=== PATIENT | female | born 1970 | race Caucasian/White ===

== ENCOUNTER 2017-12-21 12:36 | Emergency (ER) | payer MEDICAID ==
[2017-12-21] MEDS ORDERED: NS 1,000 ML IV ONE (12:57)
[2017-12-21] MEDS ORDERED: HYDROmorphONE/DILAUDID 2 MG/ML INJ IVP ONE (12:57)
[2017-12-21] MEDS ORDERED: ONDANSETRON 4 MG/2 ML VIAL IVP ONE ×2 (12:57→15:07)
--- NOTE | 2017-12-21 13:00 | EDPHY ---
H & P Stated Complaint: abd pain Time Seen by Provider: 12/21/17 12:52 HPI/ROS: CHIEF COMPLAINT: Abdominal pain, nausea and diarrhea HISTORY OF PRESENT ILLNESS: The patient is a 47-year-old morbidly obese female who presents complaining of abdominal pain. She has a history of diverticulitis and had a partial colectomy 3 years ago. She also has a history of cholecystectomy, appendectomy and hysterectomy with oophorectomy. No bleeding. She has some pain with trying to urinate but no burning or blood. She denies history of kidney stone. She thinks that this pain is similar to last time when she had diverticulitis. She has not had a fever. She has felt nauseous but has not vomited. She states that she is having watery nonbloody diarrhea. No recent travel. REVIEW OF SYSTEMS: Constitutional: denies: chills, fever, recent illness, recent injury EENTM: denies: blurred vision, double vision, nose congestion Respiratory: denies: cough, shortness of breath Cardiac: denies: chest pain, irregular heart rate, lightheadedness, palpitations Gastrointestinal/Abdominal: See HPI Genitourinary: denies: dysuria, frequency, hematuria, pain Musculoskeletal: denies: joint pain, muscle pain Skin: denies: lesions, rash, jaundice, bruising Neurological: denies: headache, numbness, paresthesia, tingling, dizziness, weakness Hematologic/Lymphatic: denies: blood clots, easy bleeding, easy bruising Immunologic/allergic: denies: HIV/AIDS, transplant EXAM: GENERAL: Well-appearing, well-nourished and in no acute distress. HEAD: Atraumatic, normocephalic. EYES: Pupils equal round and reactive to light, extraocular movements intact, sclera anicteric, conjunctiva are normal. ENT: TMs normal, nares patent, oropharynx clear without exudates. Moist mucous membranes. NECK: Normal range of motion, supple without lymphadenopathy or JVD. LUNGS: Breath sounds clear to auscultation bilaterally and equal. No wheezes rales or rhonchi. HEART: Regular rate and rhythm without murmurs, rubs or gallops. ABDOMEN: Morbidly obese, diffuse pain with even light touch of her skin or adipose tissue BACK: No CVA tenderness, no spinal tenderness, step-offs or deformities EXTREMITIES: Normal range of motion, no pitting or edema. No clubbing or cyanosis. NEUROLOGICAL: Cranial nerves II through XII grossly intact. Normal speech, normal gait. 5/5 strength, normal movement in all extremities, normal sensation PSYCH: Normal mood, normal affect. SKIN: Warm, dry, normal turgor, no visible rashes or lesions. Source: Patient Exam Limitations: No limitations - Personal History LMP (Females 10-55): Hysterectomy Current Tetanus/Diphtheria Vaccine: Yes - Medical/Surgical History Hx Asthma: No Hx Chronic Respiratory Disease: No Hx Diabetes: Yes Hx Cardiac Disease: No Hx Renal Disease: No Hx Cirrhosis: No Hx Alcoholism: No Other PMH: Diverticulosis, DM II, Cholecystectomy, appy, SHARRI,BSO, hernia repair - Family History Significant Family History: No pertinent family hx - Social History Smoking Status: Never smoked Alcohol Use: Sober Drug Use: None Constitutional: Initial Vital Signs Temperature (C) 36.5 C 12/21/17 12:38 Heart Rate 93 12/21/17 12:38 Respiratory Rate 16 12/21/17 12:38 Blood Pressure 136/97 H 12/21/17 12:38 O2 Sat (%) 95 12/21/17 12:38 O2 Delivery Mode Room Air O2 (L/minute) 2 Allergies/Adverse Reactions: Iodinated Contrast- Oral and IV Dye Allergy (Verified 12/21/17 12:46) Penicillins Allergy (Verified 12/21/17 12:44) topiramate [From Topamax] Allergy (Verified 12/21/17 12:44) Home Medications: Medication Instructions Recorded Effexor Xr 12/21/17 Lantus 12/21/17 Metformin HCl 12/21/17 Ondansetron Odt [Zofran Odt 4 mg 4 mg PO Q4 PRN #20 tab 12/21/17 (RX)] Pravastatin Sodium 12/21/17 Medical Decision Making - Diagnostics Imaging Results: Imaging Impressions Abdomen CT 12/21/17 12:57 Impression: 1. Diverticulosis of the descending and sigmoid colon without diverticulitis, bowel obstruction, or focal fluid collection. 2. Left-sided abdominal hernia repair incision site with scar demonstrating no evidence of focal fluid collection or abscess. 3. Prior hysterectomy, cholecystectomy, appendectomy, partial sigmoidectomy, and abdominal hernia repair. 4. Patient has known ALLERGY to contrast. Findings and recommendations discussed with Emergency Department physician, Dr. Terell Rubio at 1557 hours on December 21, 2017. Final report concurs with initial preliminary interpretation. Imaging: Discussed imaging studies w/ call center support representative Radiologist ED Course/Re-evaluation: 3:40 p.m. despite being premedicated the patient does have pruritus and several small hives after receiving IV contrast. I will treat her with additional Benadryl. She has no respiratory difficulties. 3:55 p.m. the patient's abdominal exam is benign. Her hives have resolved. Her previous surgical incision does not look inflamed. We discussed the CT results. She is relieved with the results. She has been hydrated. Her nausea is controlled. Patient continues to feel well. Will discharge with Zofran. Differential Diagnosis: Partial list of the Differential diagnosis considered include but were not limited to; gastritis, food poisoning, diverticulitis and although unlikely based on the history and physical exam, I also considered kidney stone, urinary tract infection, volvulus, obstruction. I discussed these differential diagnoses and the plan with the patient as well as the usual and expected course. The patient understands that the diagnosis is provisional and that in medicine we are not always correct and that further workup is often warranted. Usual and customary warnings were given. All of the patient's questions were answered. The patient was instructed to return to the emergency department should the symptoms at all worsen or return, otherwise to followup with the physician as we discussed. - Data Points Laboratory Results: Laboratory Results 12/21/17 13:40 12/21/17 13:20 12/21/17 12/21/17 12/21/17 13:40 13:20 13:20 WBC 10.31 10^3/uL H 10^3/uL (3.80-9.50) RBC 5.06 10^6/uL 10^6/uL (4.18-5.33) Hgb 13.7 g/dL g/dL (12.6-16.3) Hct 41.4 % % (38.0-47.0) MCV 81.8 fL fL (81.5-99.8) MCH 27.1 pg L pg (27.9-34.1) MCHC 33.1 g/dL g/dL (32.4-36.7) RDW 12.8 % % (11.5-15.2) Plt Count 331 10^3/uL 10^3/uL (150-400) MPV 9.5 fL fL (8.7-11.7) Neut % (Auto) 67.6 % % (39.3-74.2) Lymph % (Auto) 22.9 % % (15.0-45.0) [place] % (Auto) 4.9 % % (4.5-13.0) Eos % (Auto) 3.5 % % (0.6-7.6) Baso % (Auto) 0.7 % % (0.3-1.7) Nucleat RBC Rel Count 0.0 % % (0.0-0.2) Absolute Neuts (auto) 6.97 10^3/uL H 10^3/uL (1.70-6.50) Absolute Lymphs (auto) 2.36 10^3/uL 10^3/uL (1.00-3.00) Absolute Monos (auto) 0.51 10^3/uL 10^3/uL (0.30-0.80) Absolute Eos (auto) 0.36 10^3/uL 10^3/uL (0.03-0.40) Absolute Basos (auto) 0.07 10^3/uL 10^3/uL (0.02-0.10) Absolute Nucleated RBC 0.00 10^3/uL 10^3/uL (0-0.01) Immature Gran % 0.4 % % (0.0-1.1) Immature Gran # 0.04 10^3/uL 10^3/uL (0.00-0.10) Sodium 137 mEq/L mEq/L (135-145) Potassium 4.5 mEq/L mEq/L (3.3-5.0) Chloride 101 mEq/L mEq/L (97-110) Carbon Dioxide 22 mEq/l mEq/l (22-31) Anion Gap 14 mEq/L mEq/L (8-16) BUN 9 mg/dL mg/dL (7-23) Creatinine 0.6 mg/dL mg/dL (0.6-1.0) Estimated GFR > 60 Glucose 177 mg/dL H mg/dL (70-100) Calcium 10.0 mg/dL mg/dL (8.5-10.4) Total Bilirubin 0.5 mg/dL mg/dL (0.1-1.4) Conjugated Bilirubin 0.4 mg/dL mg/dL (0.0-0.5) Unconjugated Bilirubin 0.1 mg/dL mg/dL (0.0-1.1) AST 23 IU/L IU/L (14-46) ALT 36 IU/L IU/L (9-52) Alkaline Phosphatase 127 IU/L H IU/L (38-126) Total Protein 7.1 g/dL g/dL (6.3-8.2) Albumin 3.7 g/dL g/dL (3.5-5.0) Lipase 36 IU/L IU/L (23-300) Urine Color YELLOW Urine Appearance HAZY Urine pH 5.0 (5.0-7.5) Ur Specific [place] 1.019 (1.002-1.030) Urine Protein NEGATIVE (NEGATIVE) Urine Ketones NEGATIVE (NEGATIVE) Urine Blood NEGATIVE (NEGATIVE) Urine Nitrate NEGATIVE (NEGATIVE) Urine Bilirubin NEGATIVE (NEGATIVE) Urine Urobilinogen NEGATIVE EU EU (0.2-1.0) Ur Leukocyte Esterase NEGATIVE (NEGATIVE) Urine RBC 1-3 /hpf /hpf (0-3) Urine WBC 1-3 /hpf /hpf (0-3) Ur Epithelial Cells TRACE /lpf /lpf (NONE-1+) Urine Mucus TRACE /lpf /lpf (NONE-1+) Urine Glucose NEGATIVE (NEGATIVE) 12/21/17 13:20 WBC REJ RBC REJ Hgb REJ Hct REJ MCV REJ MCH REJ MCHC REJ RDW REJ Plt Count REJ MPV REJ Neut % (Auto) REJ Lymph % (Auto) REJ [place] % (Auto) REJ Eos % (Auto) REJ Baso % (Auto) REJ Nucleat RBC Rel Count REJ Absolute Neuts (auto) REJ Absolute Lymphs (auto) REJ Absolute Monos (auto) REJ Absolute Eos (auto) REJ Absolute Basos (auto) REJ Absolute Nucleated RBC REJ Immature Gran % REJ Immature Gran # REJ Sodium Potassium Chloride Carbon Dioxide Anion Gap BUN Creatinine Estimated GFR Glucose Calcium Total Bilirubin Conjugated Bilirubin Unconjugated Bilirubin AST ALT Alkaline Phosphatase Total Protein Albumin Lipase Urine Color Urine Appearance Urine pH Ur Specific [place] Urine Protein Urine Ketones Urine Blood Urine Nitrate Urine Bilirubin Urine Urobilinogen Ur Leukocyte Esterase Urine RBC Urine WBC Ur Epithelial Cells Urine Mucus Urine Glucose Medications Given: Discontinued Medications Diphenhydramine HCl (Benadryl Injection) 50 mg IVP EDNOW ONE Stop: 12/21/17 13:21 Last Admin: 12/21/17 13:47 Dose: 50 mg Diphenhydramine HCl (Benadryl Injection) 50 mg IVP EDNOW ONE Stop: 12/21/17 15:42 Last Admin: 12/21/17 15:42 Dose: 50 mg Hydromorphone HCl (Dilaudid) 1 mg IVP EDNOW ONE Stop: 12/21/17 12:58 Last Admin: 12/21/17 13:43 Dose: 1 mg Hydromorphone HCl (Dilaudid) 1 mg IVP EDNOW ONE Stop: 12/21/17 15:08 Last Admin: 12/21/17 15:08 Dose: 1 mg Sodium Chloride (Ns) 1,000 mls @ 0 mls/hr IV EDNOW ONE; Wide Open PRN Reason: Protocol Stop: 12/21/17 12:58 Last Admin: 12/21/17 13:34 Dose: 1,000 mls Methylprednisolone Sodium Succinate (Solu-Medrol) 125 mg IVP EDNOW ONE Stop: 12/21/17 13:21 Last Admin: 12/21/17 13:49 Dose: 125 mg Ondansetron HCl (Zofran) 4 mg IVP EDNOW ONE Stop: 12/21/17 12:58 Last Admin: 12/21/17 13:43 Dose: 4 mg Ondansetron HCl (Zofran) 4 mg IVP EDNOW ONE Stop: 12/21/17 15:08 Last Admin: 12/21/17 15:08 Dose: 4 mg Departure - Departure Disposition: Home, Routine, Self-Care Clinical Impression: Diarrhea Qualifiers: Diarrhea type: unspecified type Qualified Code(s): R19.7 - Diarrhea, unspecified Condition: Fair Instructions: Acute Diarrhea (ED) Referrals: SADIE WILKINSON [Other] - As per Instructions Prescriptions: Ondansetron Odt [Zofran Odt 4 mg (RX)] 4 mg PO Q4 PRN #20 tab PRN Reason: Nausea & Vomiting
[2017-12-21] MEDS ORDERED: methylPREDNISolone SOD SUCC 125 MG/2 ML VIAL IVP ONE (13:20)
[2017-12-21 13:59] LABS: PLATELET COUNT 331 10^3/uL (150-400)
[2017-12-21] MEDS ORDERED: IOPAMIDOL (ISOVUE-300) 100 ML BTL ONE (14:44)
[2017-12-21] MEDS ORDERED: ONDANSETRON 4 MG/2 ML VIAL ONE (15:05)
[2017-12-21] MEDS ORDERED: HYDROmorphONE/DILAUDID 1 MG/ML INJ ONE (15:05)
[2017-12-21] MEDS ORDERED: HYDROmorphONE/DILAUDID 1 MG/ML INJ IVP ONE (15:07)
[2017-12-21] MEDS ORDERED: HALOPERIDOL LACT 5 MG/ML INJ ONE (15:37)
[2017-12-21 17:00] VITALS: BP 120/78
== END 2017-12-21 17:00 | disposition home or self-care (01) ==
DX: R19.7 Diarrhea, unspecified (principal); E11.9 Type 2 diabetes mellitus without complications; E86.9 Volume depletion, unspecified; Z79.4 Long term (current) use of insulin
CPT/HCPCS: 96374; J1170; J1200; J1630; J2405; J2930; Q9967

== ENCOUNTER 2018-01-21 12:46 | Observation (INO) | payer MEDICAID ==
[2018-01-21] MEDS ORDERED: OXYCODONE/APAP 5/325 TAB PO ONE (14:08)
[2018-01-21] MEDS ORDERED: CYCLOBENZAPRINE 10 MG TAB PO ONE (14:08)
[2018-01-21] MEDS ORDERED: ONDANSETRON DISINTEGRATING 4 MG TAB PO ONE (14:08)
--- NOTE | 2018-01-21 14:08 | EDPHY ---
General - History Smoking Status: Never smoked Time Seen by Provider: 01/21/18 13:58 Narrative: CHIEF COMPLAINT: Low back pain, nausea HISTORY OF PRESENT ILLNESS: Patient presents with complaints of low back pain. She reports pain in the low back including the lumbar and left-sided lumbar musculature. This started approximately 3 days ago. It has been constant duration. Severe, 10/10 pain. Difficult to ambulate. Associated with pain that radiates to the left leg and some "numbness and tingling of the right foot."She has so sees and also with some nausea. She has a 2nd complaint of some neck pain and tingling in both hands. She denies any chest pain, shortness of breath or fever. No recent trauma or injury. She has history of chronic back pain without recent examination or re-injury. She denies any saddle anesthesia, incontinence of bowel or bladder retention of bowel bladder. She contacted her primary care physician who can see her on the of this month. No other associated complaints or modifying factors. REVIEW OF SYSTEMS: Ten systems reviewed and are negative unless otherwise noted in the HPI PCP: Dr. Hernandez SPECIALISTS: None currently PAST MEDICAL HISTORY: Diabetes, anxiety, dyslipidemia, diverticulosis, appendicitis, chronic back pain PAST SURGICAL HISTORY: Appendectomy, total abdominal hysterectomy and bilateral salpingo-oophorectomy, hernia repair SOCIAL HISTORY: Nonsmoker. Lives here independently. FAMILY HISTORY: Noncontributory EXAMINATION General Appearance: Alert, no distress. Well developed and well nourished. Head: normocephalic, atraumatic Eyes: Pupils equal and round, no conjunctival pallor or injection Neck: Normal inspection, supple, there is no midline tenderness. No crepitus, step-off or deformity. Painless range of motion all planes. No exacerbation of her upper extremity complaints with axial load. Respiratory: Lungs are clear to auscultation Cardiovascular: Regular rate and rhythm. No murmur Gastrointestinal: Morbidly obese Abdomen is soft. Back: Normal appearance. There is tenderness to the lumbar midline and left lumbar musculature. No crepitus or deformity. Neurological: A&O, nonfocal, strength is symmetric in the elbows, wrists, interossei, knees, ankles and great toes. Light sensation is symmetric in the upper extremities in the radial, ulnar and median distributions. Light sensation is symmetric in the lower extremities including the dorsum plantar surfaces. No footdrop. No wrist drop. Patellar reflexes symmetric Skin: Warm and dry, no rash Extremities: Nontender, no pedal edema. Symmetric range of motion all 4 extremities. Psychiatric: Mood and affect normal DIFFERENTIAL DIAGNOSES: Including but not limited to sciatica, lumbar radiculopathy, lumbar degenerative disc disease, acute cord compression, disc bulge, disc herniation, cervical degenerative disc disease, cervical radiculopathy, epidural abscess, diskitis MDM: 2:08 p.m. Low back pain with left lower extremity paresthesia radicular pain and neck pain with bilateral upper extremity paresthesia. She is neuro intact with no deficits on examination. She has no saddle anesthesia or incontinence of bowel or bladder. I have ordered symptomatic medications and x-rays of lumbar and cervical spine. 3:40 p.m. Patient re-evaluated. She still has intractable, 10/10 pain despite these x- rays without explanation of her pain. I have ordered MRI of the lumbar spine and cervical spine and she is not able to ambulate due to pain. We will obtain IV access for pain control. 4:40 p.m. Patient re-evaluated. Her pain is still intractable despite the IV fentanyl as well. I do feel she will need admission the hospital for pain control and inability to ambulate from her pain. I have discussed the case with Dr. Quan. He has accepted the patient to his service. She is admitted stable condition with pending MRI scans. Dr. Rubio will follow up on the results of the MRIs. SUPERVISION: This patient was independently evaluated without direct involvement of or examination by the attending physician. (Kyle Coombs) Medical Decision Making: I did not see this patient while she was in the emergency department. However her care was discussed with the PA while the patient was in the department. I agree with treatment plan and management (Mark Sellers) - Objective Vital Signs: Initial Vital Signs Temperature (C) 36.7 C 01/21/18 12:48 Heart Rate 92 01/21/18 12:48 Respiratory Rate 18 01/21/18 12:48 Blood Pressure 139/95 H 01/21/18 12:48 O2 Sat (%) 95 01/21/18 12:48 O2 Delivery Mode Room Air O2 (L/minute) 3 Allergies/Adverse Reactions: Iodinated Contrast- Oral and IV Dye Allergy (Verified 12/21/17 12:46) Penicillins Allergy (Verified 12/21/17 12:44) topiramate [From Topamax] Allergy (Verified 12/21/17 12:44) Home Medications: Medication Instructions Recorded Gabapentin [Neurontin 300 MG (*)] 900 mg PO HS 01/21/18 Glimepiride [Amaryl 2 MG (*)] 2 mg PO HS 01/21/18 Lisinopril [Zestril 5 mg (*)] 5 mg PO DAILY 01/21/18 Metoprolol Tartrate [Lopressor 100 100 mg PO BID 01/21/18 mg (*)] Multivitamins [Multivitamin (*)] 1 each PO DAILY 01/21/18 Pramipexole Di-HCl [Mirapex] 0.5 mg PO HS 01/21/18 Pravastatin Sodium [Pravachol] 80 mg PO HS 01/21/18 Sertraline HCl [Zoloft 100mg (*)] 100 mg PO HS 01/21/18 buPROPion XL [Wellbutrin 150mg XL] 150 mg PO HS 01/21/18 metFORMIN HCL [Glucophage 1000 mg] 1,000 mg PO HS 01/21/18 traMADol [Ultram 50 mg (*)] 50 mg PO DAILY 01/21/18 Acetaminophen [Tylenol 325mg (*)] 650 mg PO Q4HRS PRN tab 01/22/18 Diazepam [Valium 2 MG (*)] 2 mg PO Q6 #10 tab 01/22/18 Methocarbamol [Robaxin 500 mg (*)] 1,000 mg PO TID PRN #7 tab 01/22/18 Naproxen Sodium [Aleve 220 MG (*)] 440 mg PO BID tab 01/22/18 Polyethylene Glycol 3350 [Miralax 17 gm PO DAILY PRN pkt 01/22/18 17 gm (*)] Sennosides/Docusate Sodium 1 - 2 tab PO BID tab 01/22/18 [Senokot-S] morphINE IR [morphINE IR 15 mg (*)] 15 mg PO Q12 #6 tab 01/22/18 Laboratory Results: Laboratory Results 01/21/18 16:07 01/21/18 16:07 Medications Given: Discontinued Medications Bupropion HCl (Wellbutrin Xl) 150 mg PO [facility]: 07/20/18 20:59 Last Admin: 01/21/18 22:24 Dose: 150 mg Cyclobenzaprine HCl (Flexeril) 10 mg PO EDNOW ONE Stop: 01/21/18 14:09 Last Admin: 01/21/18 14:48 Dose: 10 mg Dexamethasone (Decadron Injection) 10 mg IVP EDNOW ONE Stop: 01/21/18 16:08 Last Admin: 01/21/18 16:29 Dose: 10 mg Diazepam (Valium) 5 mg IVP EDNOW ONE Stop: 01/21/18 16:58 Last Admin: 01/21/18 17:00 Dose: 5 mg Diazepam (Valium) 5 mg IVP ONCE ONE Stop: 01/22/18 02:06 Last Admin: 01/22/18 02:24 Dose: 5 mg Diazepam (Valium) 5 mg IVP ONCE ONE Stop: 01/22/18 11:21 Last Admin: 01/22/18 12:25 Dose: 5 mg Fentanyl (Sublimaze) 100 mcg IVP EDNOW ONE Stop: 01/21/18 16:07 Last Admin: 01/21/18 16:29 Dose: 100 mcg Gabapentin (Neurontin) 900 mg PO [facility] Stop: 07/20/18 20:59 Last Admin: 01/21/18 22:24 Dose: 900 mg Glimepiride (Amaryl) 2 mg PO [facility] Stop: 07/20/18 20:59 Last Admin: 01/21/18 22:26 Dose: 2 mg Insulin Human Lispro (Humalog Lispro) 8 unit SC ONCE ONE Stop: 01/21/18 22:50 Last Admin: 01/21/18 22:59 Dose: 8 units Ketorolac Tromethamine (Toradol) 15 mg IVP Q6HRS PRN PRN Reason: Pain, Moderate Stop: 01/26/18 17:59 Last Admin: 01/22/18 10:47 Dose: 15 mg Lisinopril (Zestril) 5 mg PO DAILY [facility] Stop: 07/21/18 08:59 Last Admin: 01/22/18 10:25 Dose: 5 mg Metformin HCl (Glucophage) 1,000 mg PO [facility] Stop: 07/20/18 20:59 Last Admin: 01/21/18 19:53 Dose: 1,000 mg Methocarbamol (Robaxin) 1,000 mg PO TID [facility] Stop: 07/20/18 21:59 Last Admin: 01/22/18 09:11 Dose: 1,000 mg Metoprolol Tartrate (Lopressor) 100 mg PO BID [facility] Stop: 07/20/18 20:59 Last Admin: 01/22/18 10:25 Dose: 100 mg Morphine Sulfate (Morphine) 2 mg IVP ONCE ONE Stop: 01/21/18 18:54 Last Admin: 01/21/18 19:53 Dose: 2 mg Morphine Sulfate (Morphine) 2 mg IVP ONCE ONE Stop: 01/22/18 02:06 Last Admin: 01/22/18 02:23 Dose: 2 mg Morphine Sulfate (Morphine) 2 mg IVP ONCE ONE Stop: 01/22/18 11:46 Last Admin: 01/22/18 12:41 Dose: Not Given Multivitamins (Tab-A-Alfa) 1 each PO DAILY [facility] Stop: 07/21/18 08:59 Last Admin: 01/22/18 09:12 Dose: 1 each Naproxen (Aleve) 440 mg PO BID [facility] Stop: 07/20/18 20:59 Last Admin: 01/22/18 12:39 Dose: Not Given Ondansetron HCl (Zofran Odt) 4 mg PO EDNOW ONE Stop: 01/21/18 14:09 Last Admin: 01/21/18 14:48 Dose: Not Given Ondansetron HCl (Zofran) 4 mg IVP Q4HRS PRN PRN Reason: Nausea/Vomiting, Can't Take PO Stop: 07/20/18 17:16 Last Admin: 01/21/18 18:14 Dose: 4 mg Oxycodone HCl (Oxycodone Ir) 5 - 10 mg PO Q4 PRN PRN Reason: Pain, Severe Able to Take PO Stop: 01/31/18 17:16 Last Admin: 01/22/18 14:40 Dose: 10 mg Oxycodone/Acetaminophen (Percocet 5/325) 2 tab PO EDNOW ONE Stop: 01/21/18 14:09 Last Admin: 01/21/18 14:48 Dose: 2 tab Pramipexole Dihydrochloride (Mirapex) 0.5 mg PO HS [facility] Stop: 07/20/18 20:59 Last Admin: 01/21/18 22:25 Dose: 0.5 mg Pravastatin Sodium (Pravachol) 80 mg PO [facility] Stop: 07/20/18 20:59 Last Admin: 01/21/18 22:25 Dose: 80 mg Senna/Docusate Sodium (Senokot-S) 1 - 2 tab PO BID [facility] PRN Reason: Protocol Stop: 07/20/18 20:59 Last Admin: 01/22/18 09:11 Dose: 2 tab Sertraline HCl (Zoloft) 100 mg PO [facility] Stop: 07/20/18 20:59 Last Admin: 01/21/18 22:26 Dose: 100 mg Departure - Departure Disposition: [facility] Acute Clinical Impression: Intractable low back pain Condition: Good
[2018-01-21] MEDS ORDERED: CYCLOBENZAPRINE 10 MG TAB ONE (14:53)
[2018-01-21] MEDS ORDERED: fentaNYL 100 MCG/2 ML INJ IVP ONE (16:06)
[2018-01-21] MEDS ORDERED: DEXAMETHASONE 10 MG/ML VIAL IVP ONE (16:07)
[2018-01-21 16:18] LABS: PLATELET COUNT 291 10^3/uL (150-400)
[2018-01-21] MEDS ORDERED: DIAZEPAM 5 MG/ML 1 ML SYR IVP ONE (16:57)
[2018-01-21] MEDS ORDERED: ONDANSETRON 4 MG/2 ML VIAL IVP PRN (17:17)
[2018-01-21] MEDS ORDERED: ONDANSETRON DISINTEGRATING 4 MG TAB PO PRN (17:17)
[2018-01-21] MEDS ORDERED: ACETAMINOPHEN 325 MG TAB PO PRN (17:17)
[2018-01-21] MEDS ORDERED: KETOROLAC 15 MG/1 ML SDV IVP PRN (17:20)
[2018-01-21] MEDS ORDERED: BISACODYL 10 MG SUPP PR PRN (17:22)
[2018-01-21] MEDS ORDERED: MAGNESIUM HYDROXIDE 30 ML UDCUP PO PRN (17:22)
[2018-01-21] MEDS ORDERED: POLYETHYLENE GLYCOL 3350 17 GM PKT PO PRN (17:22)
[2018-01-21] MEDS ORDERED: LACTULOSE 20 GM/30 ML UDCUP PO PRN (17:22)
--- NOTE | 2018-01-21 18:57 | PDGENHP ---
History and Physical - Chief Complaint Acute back pain - History of Present Illness Primary care provider: Dr. Hernandez HPI: 47-year-old female presenting with acute back pain located in the lower back, characterized as spasms, sharp, occurring in waves, radiating into her bilateral hips, with onset of symptoms 4 days prior and duration intermittent thereafter. The patient reports some associated paresthesias in her bilateral upper and lower extremities which is concomitant to the pain occurrences. She also reports the pain is exacerbated by bending or taking the stairs. She reports that is not alleviated by tramadol, Biofreeze, ibuprofen, ice, heat. She does report that it was alleviated by IV fentanyl received in the emergency department. The patient was initially given Percocet emergency department and she was continuing to experience back pain rendering her unable to ambulate. She otherwise denies any fevers chills or dysuria, she does endorse urinary frequency as well as some intermittent constipation. She reports the constipation is consistent with her irritable bowel syndrome. History Information - Allergies/Home Medication List Allergies/Adverse Reactions: Iodinated Contrast- Oral and IV Dye Allergy (Verified 12/21/17 12:46) Penicillins Allergy (Verified 12/21/17 12:44) topiramate [From Topamax] Allergy (Verified 12/21/17 12:44) Home Medications: Gabapentin [Neurontin 300 MG (*)] 900 mg PO HS 01/21/18 [Last Taken 01/20/18] Glimepiride [Amaryl 2 MG (*)] 2 mg PO HS 01/21/18 [Last Taken 01/20/18] Lisinopril [Zestril 5 mg (*)] 5 mg PO DAILY 01/21/18 [Last Taken 01/21/18] Metoprolol Tartrate [Lopressor 100 mg (*)] 100 mg PO BID 01/21/18 [Last Taken 09:00] Multivitamins [Multivitamin (*)] 1 each PO DAILY 01/21/18 [Last Taken 01/21/18] Pramipexole Di-HCl [Mirapex] 0.5 mg PO HS 01/21/18 [Last Taken 01/20/18] Pravastatin Sodium [Pravachol] 80 mg PO HS 01/21/18 [Last Taken 01/20/18] Sertraline HCl [Zoloft 100mg (*)] 100 mg PO HS 01/21/18 [Last Taken 01/20/18] buPROPion XL [Wellbutrin Xl] 150 mg PO HS 01/21/18 [Last Taken 01/20/18] metFORMIN HCL [Glucophage 1000 mg] 1,000 mg PO HS 01/21/18 [Last Taken 01/20/18] traMADol [Ultram 50 mg (*)] 50 mg PO DAILY 01/21/18 [Last Taken 01/21/18] I have personally reviewed and updated: family history, medical history, social history, surgical history - Past Medical History diabetes type 2 Additional medical history: Tachycardia otherwise undefined. Chronic lower back pain but not continuously on opiates. Morbid obesity. Irritable bowel syndrome - Surgical History Additional surgical history: Hysterectomy. Cholecystectomy. Appendectomy. Partial sigmoidectomy. Left hernia repair - Family History Additional family history: Father with CHF, father with chronic back pain, mother with breast cancer - Social History Smoking Status: Never smoked Alcohol Use: None Drug Use: None Additional social history: Normally independent in her ADLs comma resides in a single floor house with several stairs Review of Systems Review of Systems: ROS: 10pt was reviewed & negative except for what was stated in HPI & below Genitourinary: Reports: frequency Muscolosketal: Reports: back pain Neurological: Reports: paresthesia Physical Exam Physical Exam: Temp Pulse Resp BP Pulse Ox 36.8 C 82 16 118/65 90 L 01/21/18 18:26 01/21/18 18:26 01/21/18 18:26 01/21/18 18:26 01/21/18 18:26 O2 (L/minute) 2 Constitutional: no apparent distress, obese, uncomfortable, No not in pain ( Moderate) Eyes: PERRL, anicteric sclera, EOMI Ears, Nose, Mouth, Throat: moist mucous membranes, hearing normal, ears appear normal, no oral mucosal ulcers Cardiovascular: regular rate and rhythym, no murmur, rub, or gallop, No edema Respiratory: no respiratory distress, no rales or rhonchi, clear to auscultation Gastrointestinal: normoactive bowel sounds, soft, non-tender abdomen, no palpable masses, distension (Moderate pannus) Genitourinary: no bladder fullness, no bladder tenderness Musculoskeletal: other (Positive straight leg raise in right lower extremity to approximately 90 degrees with pain radiating laterally on the hip, full range of motion bilateral knees without pain) Neurologic: AAOx3, sensation intact bilaterally, No weakness (Motor strength 5/ 5 bilateral lower extremities but limited flexion secondary to pain) Psychiatric: not anxious, not encephalopathic, flat affect, No agitated Lab Data & Imaging Review 01/21/18 16:07 01/21/18 16:07 WBC 9.78 10^3/uL (3.80-9.50) H 01/21/18 16:07 RBC 5.01 10^6/uL (4.18-5.33) 01/21/18 16:07 Hgb 13.7 g/dL (12.6-16.3) 01/21/18 16:07 Hct 40.4 % (38.0-47.0) 01/21/18 16:07 MCV 80.6 fL (81.5-99.8) L 01/21/18 16:07 MCH 27.3 pg (27.9-34.1) L 01/21/18 16:07 MCHC 33.9 g/dL (32.4-36.7) 01/21/18 16:07 RDW 13.2 % (11.5-15.2) 01/21/18 16:07 Plt Count 291 10^3/uL (150-400) 01/21/18 16:07 MPV 9.8 fL (8.7-11.7) 01/21/18 16:07 Neut % (Auto) 65.9 % (39.3-74.2) 01/21/18 16:07 Lymph % (Auto) 24.2 % (15.0-45.0) 01/21/18 16:07 [place] % (Auto) 5.3 % (4.5-13.0) 01/21/18 16:07 Eos % (Auto) 3.8 % (0.6-7.6) 01/21/18 16:07 Baso % (Auto) 0.5 % (0.3-1.7) 01/21/18 16:07 Nucleat RBC Rel Count 0.0 % (0.0-0.2) 01/21/18 16:07 Absolute Neuts (auto) 6.44 10^3/uL (1.70-6.50) 01/21/18 16:07 Absolute Lymphs (auto) 2.37 10^3/uL (1.00-3.00) 01/21/18 16:07 Absolute Monos (auto) 0.52 10^3/uL (0.30-0.80) 01/21/18 16:07 Absolute Eos (auto) 0.37 10^3/uL (0.03-0.40) 01/21/18 16:07 Absolute Basos (auto) 0.05 10^3/uL (0.02-0.10) 01/21/18 16:07 Absolute Nucleated RBC 0.00 10^3/uL (0-0.01) 01/21/18 16:07 Immature Gran % 0.3 % (0.0-1.1) 01/21/18 16:07 Immature Gran # 0.03 10^3/uL (0.00-0.10) 01/21/18 16:07 ESR 47 MM/HR (0-20) H 01/21/18 16:07 Sodium 131 mEq/L (135-145) L 01/21/18 16:07 Potassium 4.2 mEq/L (3.3-5.0) 01/21/18 16:07 Chloride 97 mEq/L (97-110) 01/21/18 16:07 Carbon Dioxide 26 mEq/l (22-31) 01/21/18 16:07 Anion Gap 8 mEq/L (8-16) 01/21/18 16:07 BUN 13 mg/dL (7-23) 01/21/18 16:07 Creatinine 0.7 mg/dL (0.6-1.0) 01/21/18 16:07 Estimated GFR > 60 01/21/18 16:07 Glucose 193 mg/dL (70-100) H 01/21/18 16:07 Calcium 9.7 mg/dL (8.5-10.4) 01/21/18 16:07 Visualized and Interpreted imaging results: Yes Interpretation: Lumbar spine with degenerative disc disease, constipation, no compression fractures Assessment & Plan Assessment: 47-year-old female presenting with acute lower back pain in the setting of morbid obesity Plan: 1. Lower back pain. Acute, new problem this provider, further workup indicated. Intractable, unable to control on oral pain medications or ambulate safely from the emergency department, requiring stabilization with IV pain medications then cycling in oral anti-inflammatory medications, muscle relaxants , work with physical therapy -outside records reviewed including 12/21/[address] Clay Smith, reporting diverticulosis, previous hernia repair, no evidence of malignancy which could otherwise cause back pain -initiate scheduled naproxen, p.r.n. Low-dose Toradol for moderate pain -as needed oxycodone, scheduled Robaxin, 1 dose of IV morphine at this time to provide relief and aid in patient taking oral pain medications moving forward -bowel regimen given constipation is likely contributing component -discussed with Kyle Coombs, emergency department provider, he reports to me that MRI of the lumbar spine and cervical spine have both been ordered, results currently pending -get physical and occupational therapy to assist in regaining function -continue gabapentin -recommend follow-up with outpatient Neurosurgery versus PCP depending on MRI results 2. Morbid obesity. BMI 46, increases patient's risk of worsening morbidity from likely arthritic back pain 3. Hyponatremia. Acute, unclear etiology, check urine sodium, give normal saline overnight and gauge effect 4. Diabetes mellitus type 2. Continue home medications Diet. Diabetic Prophylaxis. High risk patient given Lovenox 40 Code. Full Disposition. Anticipated discharge is 01/22, pending stabilization of issues outlined above.
[2018-01-21] MEDS ORDERED: NS 1,000 ML IV SCH (19:15)
[2018-01-21] MEDS ORDERED: PRAMIPEXOLE 1 MG TAB PO SCH (21:00)
[2018-01-21] MEDS ORDERED: GABAPENTIN 300 MG CAP PO SCH (21:00)
[2018-01-21] MEDS ORDERED: GLIMEPIRIDE 2 MG TAB PO SCH (21:00)
[2018-01-21] MEDS ORDERED: PRAVASTATIN SODIUM 40 MG TAB PO SCH (21:00)
[2018-01-21] MEDS ORDERED: buPROPion XL 150 MG TAB PO SCH (21:00)
[2018-01-21] MEDS ORDERED: SERTRALINE HCL 100 MG TAB PO SCH (21:00)
[2018-01-21] MEDS ORDERED: metFORMIN HCL 500 MG TAB PO SCH (21:00)
[2018-01-21] MEDS: SENNOSIDES/DOCUSATE SODIUM TAB PO SCH (22:23)
[2018-01-21] MEDS: METOPROLOL TARTRATE 100 MG TAB PO SCH (22:23)
[2018-01-21] MEDS: METHOCARBAMOL 500 MG TAB PO SCH (22:24)
[2018-01-21] MEDS: NAPROXEN SODIUM 220 MG TAB PO SCH (22:24)
[2018-01-21] MEDS ORDERED: INSULIN LISPRO 100 UNIT/ML SC ONE (22:49)
[2018-01-22] MEDS: oxyCODONE IR 5 MG TAB PO PRN ×3 (00:41→14:40)
[2018-01-22] MEDS ORDERED: DIAZEPAM 5 MG/ML 1 ML SYR IVP ONE ×2 (02:05→11:20)
[2018-01-22] MEDS ORDERED: MULTIVITAMINS 1 EACH TAB PO SCH (09:00)
[2018-01-22] MEDS ORDERED: LISINOPRIL 5 MG TAB PO SCH (09:00)
[2018-01-22] MEDS: SENNOSIDES/DOCUSATE SODIUM TAB PO SCH (09:11)
[2018-01-22] MEDS: METHOCARBAMOL 500 MG TAB PO SCH (09:11)
[2018-01-22] MEDS: METOPROLOL TARTRATE 100 MG TAB PO SCH (10:25)
[2018-01-22 11:31] VITALS: BP 136/62
[2018-01-22] MEDS: NAPROXEN SODIUM 220 MG TAB PO SCH (12:39)
--- NOTE | 2018-01-22 14:39 | GDS ---
[f rep st] DISCHARGE SUMMARY DISCHARGE DIAGNOSIS: Back pain. STUDIES AND PROCEDURES: 1. Lumbar and cervical spine MRIs. 2. Lumbar and cervical x-rays. PHYSICAL EXAM: GENERAL: The patient is alert. VITAL SIGNS: Afebrile at 36.7, pulse 78, respirator y rate 16. Blood pressure is 136/62. She is saturating 97% on room air. I have seen and evaluated the patient on the day of discharge. HOSPITAL COURSE: The patient is a 47-year-old female, presented to the emergency room with complaint s of back pain. She was evaluated and diagnosed with: 1. Lower back pain: During this hospitalization, she received thorough evaluation with MRI of the c ervical and lumbar spine. There was no identifiable cause for her pain. It is likely muscle related . She will continue with pain regimen. 2. Morbid obesity: This is contributing to the patient's back pain. Physical Therapy and Occupatio nal Therapy have evaluated the patient during this hospitalization. 3. Hyponatremia: Stable prior to disposition. 4. Diabetes mellitus: The patient has poor control. She will continue on her home medications. DISPOSITION: She will be discharged home independently. There are no pending studies. Followup is on Wednesday with her primary care physician at 1:00. I discussed the patient's disposition with the jane pierce. DISCHARGE MEDICATIONS: Please refer to EMR form. I have provided the patient some Valium, Robaxin, morphine for a small amount of pain management. /[id number]/MODL
[2018-01-23] MEDS ORDERED: INSULIN LISPRO 100 UNIT/ML SC ONE (11:24)
== END 2018-01-22 16:20 | disposition home or self-care (01) ==
LOC: F3N 18:20
PROVIDERS: ADMIT Internal Medicine; ATTEND Internal Medicine
DX: M54.5 Low back pain (principal); E11.9 Type 2 diabetes mellitus without complications; E66.01 Morbid (severe) obesity due to excess calories; E87.1 Hypo-osmolality and hyponatremia
CPT/HCPCS: 72040; 72100; 72141; 72148; 96374; 96375; 97161; 97165; 97530; 99285; G0378; J1100; J1815; J1885; J2270; J2405; J3010; J3360